=== PATIENT | male | born 1990 | race Caucasian/White ===

== ENCOUNTER 2017-05-01 01:47 | Emergency (ER) | payer OTHER ==
[2017-05-01 01:55] VITALS: RESP 18
[2017-05-01] MEDS ORDERED: KETOROLAC 30 MG/ML 1 ML VIAL IVP STA (02:24)
[2017-05-01] MEDS ORDERED: METOCLOPRAMIDE 5 MG/ML 2 ML VIAL IVP STA (02:24)
[2017-05-01] MEDS ORDERED: SODIUM CHLORIDE 0.9% 1,000 ML IV STA (02:24)
[2017-05-01] MEDS ORDERED: diphenhydrAMINE 50 MG/ML 1 ML VIAL IVP STA (02:24)
--- NOTE | 2017-05-01 02:37 | ED ---
Headache HPI - General Source: RN notes reviewed, old records reviewed Mode of arrival: wheelchair Limitations: no limitations <Olive Moore - Last Filed: 05/01/17 04:13> <Spencer Ayers - Last Filed: 05/01/17 06:14> - General Chief Complaint: Headache Stated Complaint: migraine Time Seen by Provider: 05/01/17 02:15 - History of Present Illness Initial Comments: 26-year-old female presents emergency Department chief complaint of migraine- like headache for the past 5 days, reports that the headaches will be really severe for approximately an hour to 30 minutes and then will subside.. He reports it's mainly over the right side of his head,. Reports it starts in his right eye. He states that his right eye is very sensitive and watering. He denies any associated fever or chills. He states the pain starts behind his eye and then radiates down his whole right side of his head and towards his neck. Denies any other associated symptoms aside the headache. He was taken multiple Excedrin. He states he's never been evaluated or seen primary care physician due to headaches. He does have a history of frequent headaches prior to these episodes the past 5 days. Patient denies any recent fever, chills, shortness of breath, chest pain, back pain, abdominal pain, nausea vomiting, numbness or tingling, dysuria or hematuria, constipation or diarrhea, headaches or visual changes, or any other current symptoms (Olive Moore) - Related Data Home Medications Medication Instructions Recorded Confirmed No Known Home Medications [No 05/01/17 05/01/17 Known Home Medications] Allergies Allergy/AdvReac Type Severity Reaction Status Date / Time No Known Allergies Allergy Verified 05/01/17 01:55 Review of Systems ROS Other: All systems not noted in ROS Statement are negative. <Olive Moore - Last Filed: 05/01/17 04:13> ROS Other: All systems not noted in ROS Statement are negative. <Spencer Ayers - Last Filed: 05/01/17 06:14> ROS Statement: Those systems with pertinent positive or pertinent negative responses have been documented in the HPI. Past Medical History Additional Past Medical History / Comment(s): migraines History of Any Multi-Drug Resistant Organisms: None Reported Past Surgical History: Tonsillectomy Past Psychological History: No Psychological Hx Reported Smoking Status: Current every day smoker Past Alcohol Use History: Occasional Past Drug Use History: None Reported <Olive Moore - Last Filed: 05/01/17 04:13> General Exam Limitations: no limitations General appearance: alert, in no apparent distress Head exam: Present: atraumatic, normocephalic, normal inspection Eye exam: Present: normal appearance, PERRL, EOMI, conjunctival injection ( right eye conjunctival injection). Absent: scleral icterus, periorbital swelling ENT exam: Present: normal exam, normal oropharynx, mucous membranes moist Neck exam: Present: normal inspection. Absent: tenderness, meningismus, lymphadenopathy Respiratory exam: Present: normal lung sounds bilaterally. Absent: respiratory distress, wheezes, rales, rhonchi, stridor Cardiovascular Exam: Present: regular rate, normal rhythm, normal heart sounds. Absent: systolic murmur, diastolic murmur, rubs, gallop, clicks GI/Abdominal exam: Present: soft, normal bowel sounds. Absent: distended, tenderness, guarding, rebound, rigid Extremities exam: Present: normal inspection, full ROM, normal capillary refill. Absent: tenderness, pedal edema, joint swelling, calf tenderness Back exam: Present: normal inspection Neurological exam: Present: alert, oriented X3, CN II-XII intact Expanded Patient oriented to: Present: person, place, time Speech: Present: fluid speech Cranial nerves: EOM's Intact: Normal, Gag Reflex: Normal, Tongue Deviation: Normal Cerebellar function: Finger to Nose: Normal Upper motor neuron: Pronator Drift: Normal Sensory exam: Upper Extremity Light Touch: Normal, Lower Extremity Light Touch: Normal Motor strength exam: RUE: 5, LUE: 5, RLE: 5, LLE: 5 Eye Response: (4) open spontaneously Motor Response: (6) obeys commands Verbal Response: (5) oriented [place] Total: 15 Psychiatric exam: Present: normal affect, normal mood Skin exam: Present: warm, dry, intact, normal color. Absent: rash <Olive Moore - Last Filed: 05/01/17 04:13> <Spencer Ayers - Last Filed: 05/01/17 06:14> - General Exam Comments Initial Comments: This is a 26-year-old male. Patient appears in moderate discomfort. (TeresaOlive) Course <Olive Moore - Last Filed: 05/01/17 04:13> <Spencer Ayers - Last Filed: 05/01/17 06:14> Vital Signs 05/01/17 05/01/17 05/01/17 01:52 04:06 05:17 Temperature 97.5 F L 97.7 F Pulse Rate 93 77 70 Respiratory 18 18 18 Rate Blood Pressure 172/93 158/104 159/80 O2 Sat by Pulse 96 100 100 Oximetry - Reevaluation(s) Reevaluation #1: 05/01/17 03:54 Patient was reevaluated reports that his headache is still persisting. Discussed lab work was normal and CT brain was also normal. Patient states this headache is continuing. Patient given IV Norflex. (TeresaOlive) Medical Decision Making - Lab Data Result diagrams: 05/01/17 02:46 05/01/17 02:46 - Radiology Data Radiology results: report reviewed <Olive Moore - Last Filed: 05/01/17 04:13> - Lab Data Result diagrams: 05/01/17 02:46 05/01/17 02:46 - Radiology Data Radiology results: report reviewed (CT angiogram head and neck is negative for acute disease), image reviewed <Spencer Ayers - Last Filed: 05/01/17 06:14> - Medical Decision Making 26-year-old female presents emergency Department chief complaint of migraine- like headache for the past 5 days, reports that the headaches will be really severe for approximately an hour to 30 minutes and then will subside.. He reports it's mainly over the right side of his head,. Reports it starts in his right eye. He states that his right eye is very sensitive and watering. He denies any associated fever or chills. He states the pain starts behind his eye and then radiates down his whole right side of his head and towards his neck. Clinically appears the patient has cluster like migraine with the right eye watering and sensitivity to light. Patient was given IV fluids, Reglan Toradol Benadryl and Norflex. Patient reports that his migraine is still persisting. He was placed on high flow oxygen as well. Patient was reevaluated after CT brain and reports that his headache is still [address] brain was reviewed and negative for any acute process. Discussed the case with Dr. Card. Recommend CT brain with contrast, and instructed her pain medication. At 4 AM patient's care will be transferred to Dr. Ayers. (Olive Moore) 26 male whose headache is now resolved, CT and CTA negative, lab work normal. Patient will be discharged home (Spencer Ayers) - Lab Data Lab Results 05/01/17 05/01/17 05/01/17 Range/Units 02:46 02:46 02:46 WBC 7.0 (3.8-10.6) k/uL RBC 5.81 (4.30-5.90) m/uL Hgb 17.8 H (13.0-17.5) gm/dL Hct 50.8 (39.0-53.0) % MCV 87.4 (80.0-100.0) fL MCH 30.6 (25.0-35.0) pg MCHC 35.0 (31.0-37.0) g/dL RDW 12.3 (11.5-15.5) % Plt Count 192 (150-450) k/uL Neutrophils % 59 % Lymphocytes % 28 % Monocytes % 6 % Eosinophils % 3 % Basophils % 1 % Neutrophils # 4.1 (1.3-7.7) k/uL Lymphocytes # 2.0 (1.0-4.8) k/uL Monocytes # 0.5 (0-1.0) k/uL Eosinophils # 0.2 (0-0.7) k/uL Basophils # 0.1 (0-0.2) k/uL PT 11.0 (9.0-12.0) sec INR 1.1 (<1.2) APTT 25.1 (22.0-30.0) sec Sodium 140 (137-145) mmol/L Potassium 4.2 (3.5-5.1) mmol/L Chloride 105 (98-107) mmol/L Carbon Dioxide 23 (22-30) mmol/L Anion Gap 12 mmol/L BUN 20 (9-20) mg/dL Creatinine 1.00 (0.66-1.25) mg/dL Est GFR (MDRD) Af Amer >60 (>60 ml/min/1.73 sqM) Est GFR (MDRD) Non-Af >60 (>60 ml/min/1.73 sqM) Glucose 101 H (74-99) mg/dL Calcium 9.9 (8.4-10.2) mg/dL Magnesium (1.6-2.3) mg/dL Total Bilirubin 0.6 (0.2-1.3) mg/dL AST 47 (17-59) U/L ALT 127 H (21-72) U/L Alkaline Phosphatase 64 (38-126) U/L Total Protein 7.3 (6.3-8.2) g/dL Albumin 4.4 (3.5-5.0) g/dL 05/01/17 Range/Units 02:46 WBC (3.8-10.6) k/uL RBC (4.30-5.90) m/uL Hgb (13.0-17.5) gm/dL Hct (39.0-53.0) % MCV (80.0-100.0) fL MCH (25.0-35.0) pg MCHC (31.0-37.0) g/dL RDW (11.5-15.5) % Plt Count (150-450) k/uL Neutrophils % % Lymphocytes % % Monocytes % % Eosinophils % % Basophils % % Neutrophils # (1.3-7.7) k/uL Lymphocytes # (1.0-4.8) k/uL Monocytes # (0-1.0) k/uL Eosinophils # (0-0.7) k/uL Basophils # (0-0.2) k/uL PT (9.0-12.0) sec INR (<1.2) APTT (22.0-30.0) sec Sodium (137-145) mmol/L Potassium (3.5-5.1) mmol/L Chloride (98-107) mmol/L Carbon Dioxide (22-30) mmol/L Anion Gap mmol/L BUN (9-20) mg/dL Creatinine (0.66-1.25) mg/dL Est GFR (MDRD) Af Amer (>60 ml/min/1.73 sqM) Est GFR (MDRD) Non-Af (>60 ml/min/1.73 sqM) Glucose (74-99) mg/dL Calcium (8.4-10.2) mg/dL Magnesium 1.9 (1.6-2.3) mg/dL Total Bilirubin (0.2-1.3) mg/dL AST (17-59) U/L ALT (21-72) U/L Alkaline Phosphatase (38-126) U/L Total Protein (6.3-8.2) g/dL Albumin (3.5-5.0) g/dL - Radiology Data No acute intracranial abnormality. Mild paranasal sinus disease of the left maxillary sinus and ethmoids. (Olive Moore) Disposition <Olive Moore - Last Filed: 05/01/17 04:13> <Spencer Ayers - Last Filed: 05/01/17 06:14> Clinical Impression: Migraine, Cluster headaches Disposition: HOME SELF-CARE Condition: Good Instructions: Acute Headache (ED) Referrals: Odilon Savage MD [Primary Care Provider] - 1-2 days
[2017-05-01 03:01] LABS: Basophils # (A) 0.1 k/uL (0-0.2); Basophils % (A) 1 %; CH 31.2; CHCM 35.9; Eosinophils # (A) 0.2 k/uL (0-0.7); Eosinophils % (A) 3 %; HCT 50.8 % (39.0-53.0); HDW 2.64; HGB 17.8 gm/dL (13.0-17.5); Luc # (Auto) 0.18; Luc % (Auto) 3; Lymphocytes % (A) 28 %; MCH 30.6 pg (25.0-35.0); MCV 87.4 fL (80.0-100.0); Mean Platelet Volume 7.1; Monocytes # (A) 0.5 k/uL (0-1.0); Monocytes % (A) 6 %; Neutrophils # (A) 4.1 k/uL (1.3-7.7); Neutrophils % (A) 59 %; RBC 5.81 m/uL (4.30-5.90); RDW 12.3 % (11.5-15.5); WBC (Perox) 7.29
[2017-05-01 03:09] LABS: ALT 127 U/L (21-72); AST 47 U/L (17-59); Alkaline Phosphatase 64 U/L (38-126); Anion Gap 12 mmol/L; Blood Urea Nitrogen 20 mg/dL (9-20); Calcium 9.9 mg/dL (8.4-10.2); Carbon Dioxide 23 mmol/L (22-30); Chloride 105 mmol/L (98-107); Glucose 101 mg/dL (74-99); Non-African American GFR(MDRD) >60 (>60 ml/min/1.73 sqM); Potassium 4.2 mmol/L (3.5-5.1); Sodium 140 mmol/L (137-145); Total Bilirubin 0.6 mg/dL (0.2-1.3); Total Protein 7.3 g/dL (6.3-8.2)
[2017-05-01] MEDS ORDERED: ORPHENADRINE 30 MG/ML 2 ML VIAL IVP STA (03:36)
[2017-05-01] MEDS ORDERED: SODIUM CHLORIDE 0.9% 1,000 ML IV ONE (03:36)
--- NOTE | 2017-05-01 03:47 | CT ---
EXAM: CT Head Without Intravenous Contrast CLINICAL HISTORY: Reason: headache, htn TECHNIQUE: Axial computed tomography images of the head/brain without intravenous contrast. Coronal and sagittal reformats were obtained. CTDI is 57.40 mGy and DLP is 1083.40 mGy-cm. This CT exam was performed using one or more of the following dose reduction techniques: automated exposure control, adjustment of the mA and/or kV according to patient size, and/or use of iterative reconstruction technique. COMPARISON: No relevant prior studies available. FINDINGS: Brain: Unremarkable. No hemorrhage. No edema. Ventricles: Unremarkable. No ventriculomegaly. Bones/joints: Unremarkable. No acute fracture. Sinuses: Trace fluid or thickening in the imaged left maxillary sinus. Mild scattered mucosal thickening of ethmoid air cells. Mastoid air cells: Unremarkable as visualized. No mastoid effusion. IMPRESSION: 1. No acute intracranial abnormality. 2. Mild paranasal sinus disease of the left maxillary sinus and ethmoids.
[2017-05-01 03:58] LABS: INR 1.1 (<1.2); Partial Thromboplastin Time 25.1 sec (22.0-30.0)
[2017-05-01] MEDS ORDERED: RX INFO: IV CONTRAST WAS GIVEN 1 EACH MISC MISCELLANE PRN ×2 (04:11→04:30)
[2017-05-01] MEDS ORDERED: HYDROmorphone 1 MG/ML 1 ML SYRINGE IVP STA (04:12)
[2017-05-01 05:18] VITALS: TEMP 97.7
--- NOTE | 2017-05-01 06:02 | CT ---
EXAM: CT Angiography Head With Intravenous Contrast CLINICAL HISTORY: Reason: Pain TECHNIQUE: Axial computed tomographic angiography images of the head with intravenous contrast using CT angiography protocol. Coronal and sagittal reformats were obtained. CTDI is 123.10 mGy and DLP is 402.10 mGy-cm. This CT exam was performed using one or more of the following dose reduction techniques: automated exposure control, adjustment of the mA and/or kV according to patient size, and/or use of iterative reconstruction technique. MIP reconstructed images were created and reviewed. COMPARISON: CT head 05/01/17 FINDINGS: Limitations: Exam limited by suboptimal contrast bolus timing. No large vessel occlusion or obvious aneurysm in the bilateral intracranial ICAs, anterior cerebral, middle cerebral, posterior cerebral, or vertebrobasilar arteries. IMPRESSION: Exam limited by suboptimal contrast bolus timing. No large vessel occlusion or obvious aneurysm. EXAM: CT Angiography Neck With Intravenous Contrast CLINICAL HISTORY: Reason: Pain TECHNIQUE: Axial computed tomographic angiography images of the neck with intravenous contrast using CT angiography protocol. Coronal and sagittal reformats were obtained. CTDI is 123.10 mGy and DLP is 402.10 mGy-cm. This CT exam was performed using one or more of the following dose reduction techniques: automated exposure control, adjustment of the mA and/or kV according to patient size, and/or use of iterative reconstruction technique. MIP reconstructed images were created and reviewed. COMPARISON: No relevant prior studies available. FINDINGS: Limitations: Exam limited by suboptimal contrast bolus timing. VASCULATURE: Right common carotid artery: Unremarkable. No significant stenosis. No dissection or occlusion. Right internal carotid artery: Unremarkable. Extracranial segment is patent with no significant stenosis. No dissection or occlusion. Right external carotid artery: Unremarkable. No occlusion. Right vertebral artery: No obvious stenosis. No dissection or occlusion. Left common carotid artery: Unremarkable. No significant stenosis. No dissection or occlusion. Left internal carotid artery: Unremarkable. Extracranial segment is patent with no significant stenosis. No dissection or occlusion. Left external carotid artery: Unremarkable. No occlusion. Left vertebral artery: No obvious stenosis. No dissection or occlusion. NECK: Bones/joints: No acute fracture. Soft tissues: Unremarkable as visualized. CAROTID STENOSIS REFERENCE USING NASCET CRITERIA: % ICA stenosis = (1 - narrowest ICA diameter/diameter of distal cervical ICA) x 100. Mild - <50% stenosis. Moderate - 50-69% stenosis. Severe - 70-94% stenosis. Near occlusion - 95-99% stenosis. Occluded - 100% stenosis. IMPRESSION: Exam limited by suboptimal contrast bolus timing. No evidence of dissection or occlusion.
[2017-05-01 06:31] VITALS: BP 152/70; PULSE 90
== END 2017-05-01 06:32 | disposition home or self-care (01) ==
LOC: EC 01:47
DX: G43.909 Migraine, unspecified, not intractable, without status migrainosus (principal); G44.009 Cluster headache syndrome, unspecified, not intractable; R40.2412 Glasgow coma scale score 13-15, at arrival to emergency department; F17.200 Nicotine dependence, unspecified, uncomplicated
CPT/HCPCS: 99284 ×2; 96374 ×2; 96375 ×5; 96361 ×2; 36415; 80053; 83735; 85025; 85610; 85730; 70496; 70450; 70498; J1200; J2360; J2765; Q9967; J1885; J1170

== ENCOUNTER → 2018-07-15 | Outpatient (CLI) | payer BC ==
--- NOTE | 2018-07-15 17:49 | CONS ---
CONSULTATION REASON FOR CONSULTATION: Consultation for sleep apnea. This is a 27-year-old, obese male patient with known history of hypertension, having difficulty with excessive daytime sleepiness and has typical features of obstructive sleep apnea including loud snoring and witnessed apneas. He goes to bed around 9 p.m., wakes up 6:00 am in the morning. He feels quite tired and sleepy during the day. Beryl score is at 7. Never been involved in a motor vehicle accident because of feeling drowsy or sleepy. No restlessness in lower extremities. No grinding of the teeth. No anxiety or panic attacks. No psychiatric disorders. PAST MEDICAL HISTORY: Hypertension, obesity. PAST SURGICAL HISTORY: Tonsillectomy. DRUG ALLERGIES: Not known. OUTPATIENT MEDICATIONS INCLUDE: Hydrochlorothiazide and losartan. SOCIAL HISTORY: Ex-smoker. No history of alcohol. No history of IV drugs. FAMILY HISTORY: Father and grandfather with obstructive sleep apnea. REVIEW OF SYSTEMS: The patient has gained around 100 pounds over the past 10 years. He has snoring and witnessed apneas. No choking. No nocturia. No grinding of the teeth. No gasping for air. No restlessness in lower extremities. No sleepwalking or sleep talking. No anxiety or panic attacks. No palpitations. No other complaints otherwise for now, such as sleep paralysis, hallucinations or cataplexy for now. PHYSICAL EXAMINATION: BP is 160/98, pulse 89, respirations 16, temperature 97.4. BMI is 42.7, weight is 298. Height is 5 feet 10 inches, neck size 20.5 inches. General appearance: Calm, comfortable. Head is atraumatic, normocephalic. NECK: Supple. Mallampati class IV. There is no goiter or neck masses. He has got a thick and short neck. LUNGS: Clear to auscultation. HEART: Sounds regular rate and rhythm. Normal S1, S2. No S3. No murmurs. ABDOMEN: Soft, nontender. No organomegaly. EXTREMITIES: No edema. No cyanosis or clubbing. NEUROLOGIC: Alert and oriented x3. No focal neurological deficits. PSYCHIATRIC: Negative for anxiety or depression. IMPRESSION: 1. Hypersomnia with high likelihood for obstructive sleep apnea. 2. Obesity with interval 100 pounds weight gain. Current BMI is 42.7. 3. Hypertension. PLAN: 1. Proceed with a screening polysomnogram with a high suspicion for obstructive sleep apnea and act accordingly. 2. Encourage weight loss. 3. Implement good sleep hygiene measures. 4. Avoid driving especially when feeling drowsy or sleepy. MMODL / IJN: [id number] /
== END | disposition home or self-care (01) ==
LOC: SLEEP 15:59
PROVIDERS: ATTEND Internal Medicine Critical Care Medicine
DX: G47.10 Hypersomnia, unspecified (principal); I10 Essential (primary) hypertension; E66.9 Obesity, unspecified; Z68.41 Body mass index [BMI] 40.0-44.9, adult; Z90.89 Acquired absence of other organs; Z87.891 Personal history of nicotine dependence; Z79.899 Other long term (current) drug therapy
CPT/HCPCS: 99211

== ENCOUNTER 2019-10-24 14:01 | Emergency (ER) | payer SELFPAY ==
[2019-10-24 14:20] VITALS: PULSE 86; RESP 18; TEMP 97.6
[2019-10-24] MEDS ORDERED: LIDOCAINE 1%-EPI 1:100,000 20 ML VIAL SQ STA (14:39)
[2019-10-24] MEDS ORDERED: HYDROcodone/APAP 5-325MG 1 EACH TAB PO STA (14:39)
--- NOTE | 2019-10-24 14:45 | ED ---
ENT HPI - General Chief complaint: Dental/Oral Stated complaint: Dental Pain Time Seen by Provider: 10/24/19 14:30 Source: patient Mode of arrival: ambulatory Limitations: no limitations - History of Present Illness Initial comments: Patient is a 29-year-old male presenting to emergency Department with a chief complaint of dental pain. Patient reports pain started last night while he return back. Denies any trauma to the region. States the pain is located in the bottom right jaw. States he does not see a dentist for a while. Does report taking [id number] analgesics with minimal improvement. States the pain is radiating slightly along the right side of the neck. Denies any nausea vomiting diarrhea or fevers. Denies any drooling dysphagia or odontophagia. - Related Data Previous Rx's Medication Instructions Recorded Amoxicillin/Potassium Clav 1 tab PO Q12HR #20 tab 10/24/19 [Augmentin 875-125 Tablet] Allergies Allergy/AdvReac Type Severity Reaction Status Date / Time No Known Allergies Allergy Verified 05/01/17 01:55 Review of Systems ROS Statement: Those systems with pertinent positive or pertinent negative responses have been documented in the HPI. ROS Other: All systems not noted in ROS Statement are negative. Past Medical History Past Medical History: Hypertension Additional Past Medical History / Comment(s): migraines History of Any Multi-Drug Resistant Organisms: None Reported Past Surgical History: Tonsillectomy Past Psychological History: No Psychological Hx Reported Smoking Status: Current every day smoker Past Alcohol Use History: Occasional Past Drug Use History: None Reported General Exam Limitations: no limitations General appearance: alert, in no apparent distress Head exam: Present: atraumatic, normocephalic, normal inspection Eye exam: Present: normal appearance Pupils: Present: normal accommodation ENT exam: Present: normal exam, mucous membranes moist, TM's normal bilaterally, normal external ear exam. Absent: normal oropharynx (Poor dentition. Partial fracture of tooth #34. Tenderness with palpation. Mild surrounding gingival erythema. No discharge. No signs of periapical abscess.) Neck exam: Present: normal inspection, full ROM Respiratory exam: Present: normal lung sounds bilaterally Cardiovascular Exam: Present: regular rate, normal rhythm, normal heart sounds Extremities exam: Present: normal inspection, full ROM Back exam: Present: normal inspection, full ROM Neurological exam: Present: alert, oriented X3 Psychiatric exam: Present: normal affect, normal mood Skin exam: Present: warm, dry, intact, normal color Course Vital Signs 10/24/19 14:15 Temperature 97.6 F Pulse Rate 86 Respiratory 18 Rate Blood Pressure 196/111 O2 Sat by Pulse 100 Oximetry Procedures - Nerve Block Consent Obtained: verbal consent Local Anesthetic Used: LIDOCAINE 1% with EPI Amount of anesthesia used: 3 Side: right Intraoral Nerve Block: inferior alveolar Procedure Successful: Yes Complications: none, bleeding Patient Tolerated Procedure: well, no complications Medical Decision Making - Medical Decision Making Patient 29-year-old male presenting to the emergency department with chief complaint of dental pain. Patient assist report dentition. Nares and he has multiple caries and a partially fractured tooth #34. Mild surrounding erythema of the gumline. No periapical abscesses. Patient given a right inferior alveolar block. Patient reports improvement of his symptoms. Patient states he will make an appointment to see a dentist on Saturday. Patient will be discharged with Augmentin and Tylenol 3 starter pack. He has a ride home today. Advised not to drive or operate machinery when taking medication. Return parameters discussed. All questions answered. This discussed with physician. Disposition Clinical Impression: Fractured tooth, Pain, dental Disposition: HOME SELF-CARE Condition: Stable Instructions (If sedation given, give patient instructions): Toothache (ED) Additional Instructions: Take prescribed medication as directed. Follow with a dentist. Return to emergency department if symptoms worsen. Prescriptions: Amoxicillin/Potassium Clav [Augmentin 875-125 Tablet] 1 tab PO Q12HR #20 tab Is patient prescribed a controlled substance at d/c from ED?: No Referrals: None,Stated [Primary Care Provider] - 1-2 days Time of Disposition: 14:44
[2019-10-24] MEDS ORDERED: ACET/COD 300 MG/30 MG STARTER PACK 6 TAB BTL PO STA (14:59)
[2019-10-24 15:14] VITALS: BP 189/97
== END 2019-10-24 15:12 | disposition home or self-care (01) ==
LOC: EC 14:01
DX: S02.5XXA Fracture of tooth (traumatic), initial encounter for closed fracture (principal); K00.7 Teething syndrome; I10 Essential (primary) hypertension; F17.200 Nicotine dependence, unspecified, uncomplicated; X58.XXXA Exposure to other specified factors, initial encounter
CPT/HCPCS: 64400; 99282